=== PATIENT | female | born 2000 | race Asian ===

== ENCOUNTER 2022-08-04 23:42 | Emergency (ER) | payer OTHER ==
[~2022-08-04] VITALS: Ht 160 cm; Wt 54.4 kg
[2022-08-05] MEDS ORDERED: PROVENTIL HFA6.7 GM IH (03:31)
[2022-08-05] MEDS ORDERED: ZYNCOF 20-400120 ML PO (03:31)
== END 2022-08-05 03:48 ==
LOC: ER 23:42 → EMR PED 23:42 → ER 08-05 01:54
DX: J10.1 Influenza due to other identified influenza virus with other respiratory manifestations (principal)